=== PATIENT | female | born 1945 | race Caucasian/White ===

== ENCOUNTER 2020-12-18 12:35 | Observation (INO) ==
[2020-12-18 13:36] LABS: ABS Eosinophils 0.1 10^3/ul (0-0.6); ABS Lymphocytes 1.3 10^3/ul (1.0-4.8); ABS Monocytes 0.3 10^3/ul (0-0.8); Eosinophil % 1.3 %; Hematocrit 41 % (35-47); Hemoglobin 13.7 g/dL (12.0-16.0); Lymphocyte % 22.9 %; Mean Corpuscular HGB Conc 33 g/dL (31-36); Mean Corpuscular Hemoglobin 30 pg (27-31); Mean Corpuscular Volume 90 fL (80-97); Mean Platelet Volume 7.7 fL (7.4-10.4); Platelet Count 265 10^3/uL (150-450); Red Blood Count 4.56 10^6 /uL (3.70-4.87); Red Cell Distribution Width 14 % (10-15); White Blood Count 5.8 10^3/uL (3.5-10.8)
[2020-12-18 13:58] LABS: INR 1.67 (0.86-1.15)
[2020-12-18 14:05] LABS: Albumin 4.2 g/dL (3.2-5.2); Albumin/Globulin Ratio 1.4 (1-3); Calcium 9.7 mg/dL (8.6-10.3); EGFR African American 86.1 (>60); EGFR Non-African American 71.1 (>60); Globulin 2.9 g/dL (2-4); Potassium 4.3 mmol/L (3.5-5.0); Total Bilirubin 0.7 mg/dL (0.2-1.0); Total Protein 7.1 g/dL (6.4-8.9)
[2020-12-18] MEDS ORDERED: Iohexol 350 (CONTRAST) 500 ML MDV IV ONE (14:49)
[2020-12-18] MEDS ORDERED: Albuterol HFA INHALER 8 gm MDI INH PRN (19:08)
[2020-12-18] MEDS: Enoxaparin 80 MG/0.8 ML SYR SUBCUT SCH (22:19)
[2020-12-19] MEDS: Enoxaparin 80 MG/0.8 ML SYR SUBCUT SCH (08:33)
[2020-12-19] MEDS ORDERED: Mometasone/Formoter 100/5 MDI INH SCH ×2 (09:00→21:00)
[2020-12-19 11:41] VITALS: BP 129/77
[2020-12-22 13:48] LABS: Prothrombin 20210 Mutation Negative (Negative)
== END 2020-12-19 16:16 | disposition home or self-care (01) ==
LOC: ED 12:35 → MEDTELE 12:35
PROVIDERS: ADMIT Internal Medicine; ATTEND Internal Medicine